=== PATIENT | male | born 1955 | race Caucasian/White ===

== ENCOUNTER 2017-05-26 06:03 | Inpatient (IN) | payer BC ==
[2017-05-25 10:27] LABS: Albumin 3.9 g/dL (3.4-5.0); BUN/Creatinine Ratio 15.7; Calcium 9.3 mg/dL (8.5-10.1); Potassium 3.9 mmol/L (3.5-5.1)
[2017-05-25 10:28] LABS: INR 1.04 (0.9-1.15); Partial Thromboplastin Time 29.2 sec (22.64-33.71); Prothrombin Time 11.3 sec (9.37-12.3)
[2017-05-25 10:30] LABS: Total Protein 7.1 g/dL (6.4-8.2)
[2017-05-25 10:35] LABS: Urine Bilirubin Negative (Negative); Urine Blood Negative /uL (Negative); Urine Color Yellow (Yellow); Urine Glucose Normal (Normal); Urine Ketone Negative (Negative); Urine Nitrite Negative (Negative); Urine RBC <1 /hpf (0 - 3); Urine Urobilinogen Normal (Negative)
[2017-05-25 10:36] LABS: Basophils # (auto) 0 uL; Basophils % (auto) 0.5 % (0.0-2.0); Eosinophils # (auto) 0.5 uL; Eosinophils % (auto) 8.6 % (0.0-7.0); Hematocrit 45.6 % (41.0-53.0); Hemoglobin 15.8 g/dL (13.5-17.5); Lymphocytes # (auto) 1.2 uL; Lymphocytes % (auto) 18.2 % (10.0-50.0); Mean Corpuscular Hemoglobin 29.9 pg (28.0-32.0); Mean Corpuscular Hgb Conc. 34.7 g/dL (32.0-36.0); Mean Corpuscular Volume 86.2 fL (80.0-100.0); Mean Platelet Volume 8.3 fL (6.9-10.8); Monocytes # (auto) 0.4 uL; Monocytes % (auto) 6.8 % (0.0-12.0); Neutrophils # (auto) 4.2 uL; Neutrophils % (auto) 65.9 % (37.0-80.0); Nucleated Red Blood Cells % 0.2 %; Platelet Count (auto) 160 10^3/uL (140-450); Red Cell Distribution Width 14.2 % (11.8-14.3); White Blood Cell 6.4 10^3/uL (4.4-10.8)
[~2017-05-26] VITALS: Ht 188 cm; Wt 93.2 kg
[~2017-05-26 06:03] MED LIST: ALBU1AER4 IN; ALBU2TAB4 IN; ATOR10TA PO; METH750T3 PO; MONT5CHW17 PO; OXYC-629 PO; PRA25T PO; UMEC1INH IN
[2017-05-26] MEDS ORDERED: LIDOCAINE W/ EPINEPHRINE 1 % INJ 30ML ONE (07:21)
[2017-05-26] MEDS ORDERED: METHYLENE BLUE 0.5% 5MG/ML 10ml AMP IV ONE (07:21)
[2017-05-26] MEDS ORDERED: BUPIVACAINE 0.25% INJ 50ML VIAL ONE (07:22)
[2017-05-26] MEDS ORDERED: fentaNYL CITRATE 100 MCG/2 ML VL ONE ×2 (07:36→12:22)
[2017-05-26] MEDS ORDERED: MIDAZOLAM HCL 1MG/1ML-2 ML VIAL ONE (07:36)
[2017-05-26] MEDS ORDERED: ceFOXitin 2GM/100ML D5W 100 ML IV ONE (07:38)
[2017-05-26] MEDS ORDERED: ROCURONIUM 10MG/ML 10ML VIAL IV ONE (07:42)
[2017-05-26] MEDS ORDERED: PROPOFOL 10 MG/ML 20 ML IV ONE (07:42)
[2017-05-26] MEDS ORDERED: MORPHINE SULFATE INJECTION 1 ML ONE (08:31)
[2017-05-26] MEDS ORDERED: CEFOXITIN SODIUM 1 GM in D5W 5% 50 ML IV SCH (09:45)
[2017-05-26] MEDS ORDERED: ALBUTEROL SULFATE 1.25 MG IN PRN (09:45)
[2017-05-26] MEDS ORDERED: PATIENTS OWN MEDICATION (Montelukast Sodium (Singulair) 10 MG) PO SCH ×2 (10:00)
[2017-05-26] MEDS: MONTELUKAST SODIUM 10 MG TAB PO SCH (10:00)
[2017-05-26] MEDS ORDERED: ALBUTEROL SULF 2.5 MG/0.5ML(0.5%) NEB SOLN NEB PRN (11:00)
[2017-05-26] MEDS ORDERED: ONDANSETRON HCL 4 MG/2 ML VIAL IV ONE (11:00)
[2017-05-26] MEDS ORDERED: hydrALAZINE HCL 20 MG/ML VL IV PRN (11:00)
[2017-05-26] MEDS ORDERED: fentaNYL CITRATE 100 MCG/2 ML VL IV PRN (11:00)
[2017-05-26] MEDS: oxyCODONE ER 10 MG TAB PO SCH ×3 (12:00→21:27)
[2017-05-26] MEDS ORDERED: ONDANSETRON HCL 4 MG/2 ML VIAL ONE (12:11)
[2017-05-26] MEDS ORDERED: METOCLOPRAMIDE HCL 5MG/ml INJ 2ml VIAL ONE (12:11)
[2017-05-26] MEDS ORDERED: DEXAMETHASONE SOD PHOS 10MG/1ML VIAL INJ ONE (12:11)
[2017-05-26] MEDS ORDERED: NEOSTIGMINE 1 MG/ML INJ (10mg/10ML VIAL) ONE (12:12)
[2017-05-26] MEDS ORDERED: GLYCOPYRROLATE 0.2 MG/ML 1ML VIAL ONE (12:12)
[2017-05-26] MEDS ORDERED: MEPERIDINE HCL (50 MG/ML) 1 ML VIAL ONE (12:27)
[2017-05-26] MEDS: HYDROmorphone HCL 2 MG/ML VL IV PRN ×6 (12:50→23:07)
[2017-05-26 14:08] VITALS: BP 146/86
[2017-05-26] MEDS: CEFOXITIN SODIUM 1 GM in D5W 5% 50 ML IV SCH ×2 (14:37→21:26)
[2017-05-26 14:38] LABS: BUN/Creatinine Ratio 13.1; Calcium 8.1 mg/dL (8.5-10.1); Potassium 4.2 mmol/L (3.5-5.1)
[2017-05-26 17:00] VITALS: BP 142/80
[2017-05-26] MEDS: D5W/SOD CHL 0.45% 1,000 ML IV SCH ×2 (17:33→18:19)
[2017-05-26] MEDS ORDERED: PRAMIPEXOLE DIHYDROCHLORIDE MO 0.25 MG TAB PO SCH (18:00)
[2017-05-26] MEDS ORDERED: PATIENTS OWN MEDICATION (Atorvastatin Calcium (Lipitor) 1 TAB) PO SCH ×2 (18:00)
[2017-05-26] MEDS: ALBUTEROL SULF 2.5 MG/0.5ML(0.5%) NEB SOLN NEB SCH (19:09)
[2017-05-26 20:00] VITALS: BP 145/75
[2017-05-26] MEDS: ATORVASTATIN 20 MG TAB PO SCH (21:27)
[2017-05-26 21:53] VITALS: BP 145/75
[2017-05-27] MEDS: D5W/SOD CHL 0.45% 1,000 ML IV SCH ×3 (02:30→17:33)
[2017-05-27] MEDS: HYDROmorphone HCL 2 MG/ML VL IV PRN ×4 (02:30→22:11)
[2017-05-27 05:00] VITALS: BP 99/54
[2017-05-27] MEDS: CEFOXITIN SODIUM 1 GM in D5W 5% 50 ML IV SCH (06:16)
[2017-05-27] MEDS: oxyCODONE ER 10 MG TAB PO SCH ×4 (06:16→21:50)
[2017-05-27] MEDS: ALBUTEROL SULF 2.5 MG/0.5ML(0.5%) NEB SOLN NEB SCH ×4 (07:06→18:47)
[2017-05-27 07:40] VITALS: BP 136/65
[2017-05-27] MEDS: ACETAMINOPHEN/CODEINE#3 (300/30mg) TAB PO PRN (09:11)
[2017-05-27] MEDS: MONTELUKAST SODIUM 10 MG TAB PO SCH (10:00)
[2017-05-27] MEDS: PRAMIPEXOLE DIHYDROCHLORIDE MO 0.25 MG TAB PO SCH (10:00)
[2017-05-27] MEDS: DOCUSATE SOD 100 MG CAP PO PRN ×2 (10:15→21:50)
[2017-05-27 10:55] VITALS: BP 132/66
[2017-05-27 16:19] VITALS: BP 114/67
[2017-05-27 20:35] VITALS: BP 120/67
[2017-05-27] MEDS: ATORVASTATIN 20 MG TAB PO SCH (21:49)
[2017-05-28] MEDS: D5W/SOD CHL 0.45% 1,000 ML IV SCH ×3 (04:48→17:50)
[2017-05-28 05:32] VITALS: BP 116/75
[2017-05-28] MEDS: oxyCODONE ER 10 MG TAB PO SCH ×4 (05:39→21:46)
[2017-05-28] MEDS: ALBUTEROL SULF 2.5 MG/0.5ML(0.5%) NEB SOLN NEB SCH ×4 (07:32→18:19)
[2017-05-28] MEDS: MONTELUKAST SODIUM 10 MG TAB PO SCH (08:58)
[2017-05-28] MEDS: PRAMIPEXOLE DIHYDROCHLORIDE MO 0.25 MG TAB PO SCH (08:58)
[2017-05-28] MEDS: HYDROmorphone HCL 2 MG/ML VL IV PRN (08:58)
[2017-05-28 09:54] VITALS: BP 124/72
[2017-05-28] MEDS ORDERED: SODIUM CHLORIDE 0.9 % NEB SOLN 3ML NEB ONE (12:04)
[2017-05-28 12:15] VITALS: BP 126/72
[2017-05-28 16:14] VITALS: BP 118/73
[2017-05-28] MEDS: ATORVASTATIN 20 MG TAB PO SCH (21:45)
[2017-05-28] MEDS: DOCUSATE SOD 100 MG CAP PO PRN (21:47)
[2017-05-29] MEDS: D5W/SOD CHL 0.45% 1,000 ML IV SCH ×3 (01:33→19:00)
[2017-05-29 05:00] VITALS: BP 133/76
[2017-05-29] MEDS: ALBUTEROL SULF 2.5 MG/0.5ML(0.5%) NEB SOLN NEB SCH ×4 (05:57→18:23)
[2017-05-29] MEDS: oxyCODONE ER 10 MG TAB PO SCH ×3 (05:57→17:58)
[2017-05-29] MEDS: HYDROmorphone HCL 2 MG/ML VL IV PRN ×2 (09:42→14:41)
[2017-05-29 10:22] VITALS: BP 123/76
[2017-05-29] MEDS ORDERED: MAGNESIUM CITRATE SOLUTION 300 ML BTL PO ONE (10:30)
[2017-05-29] MEDS ORDERED: MAGNESIUM CITRATE SOLUTION 300 ML BTL PO PRN (10:30)
[2017-05-29] MEDS: MONTELUKAST SODIUM 10 MG TAB PO SCH (10:45)
[2017-05-29] MEDS: PRAMIPEXOLE DIHYDROCHLORIDE MO 0.25 MG TAB PO SCH (10:45)
[2017-05-29] MEDS: ONDANSETRON HCL 4 MG/2 ML VIAL IV PRN (12:12)
[2017-05-29 12:21] VITALS: BP 153/93
[2017-05-29 15:50] VITALS: BP 153/93
[2017-05-29 16:16] VITALS: BP 144/93
[2017-05-29] MEDS ORDERED: BISACODYL 10 MG RECT SUPP PR PRN (18:00)
[2017-05-29] MEDS: ATORVASTATIN 20 MG TAB PO SCH (21:33)
[2017-05-29] MEDS: DOCUSATE SOD 100 MG CAP PO PRN (21:33)
[2017-05-29] MEDS: diphenhdrAMINE HCL 50 MG/1 ML VL IV PRN (21:33)
[2017-05-29] MEDS: OXYCODONE HCL 5MG TAB PO PRN (21:34)
[2017-05-29 22:00] VITALS: BP 157/83
[2017-05-30] MEDS: D5W/SOD CHL 0.45% 1,000 ML IV SCH (02:00)
[2017-05-30 05:00] VITALS: BP 124/75
[2017-05-30] MEDS: ALBUTEROL SULF 2.5 MG/0.5ML(0.5%) NEB SOLN NEB SCH ×3 (06:15→19:40)
[2017-05-30] MEDS: ACETAMINOPHEN/CODEINE#3 (300/30mg) TAB PO PRN (08:20)
[2017-05-30] MEDS: PRAMIPEXOLE DIHYDROCHLORIDE MO 0.25 MG TAB PO SCH (09:22)
[2017-05-30] MEDS: MONTELUKAST SODIUM 10 MG TAB PO SCH (09:22)
[2017-05-30] MEDS: HYDROmorphone HCL 2 MG/ML VL IV PRN ×2 (10:32→16:54)
[2017-05-30 11:37] VITALS: BP 132/85
[2017-05-30] MEDS ORDERED: GOLYTELY 4L KIT PO ONE (13:30)
[2017-05-30] MEDS: OXYCODONE HCL 5MG TAB PO PRN ×2 (13:46→18:36)
[2017-05-30 17:50] VITALS: BP 131/86
[2017-05-30] MEDS: ONDANSETRON HCL 4 MG/2 ML VIAL IV PRN (18:36)
[2017-05-30] MEDS: ATORVASTATIN 20 MG TAB PO SCH (23:09)
[2017-05-30] MEDS: diphenhdrAMINE HCL 50 MG/1 ML VL IV PRN (23:09)
[2017-05-30 23:53] VITALS: BP 137/87
[2017-05-31] MEDS: ALBUTEROL SULF 2.5 MG/0.5ML(0.5%) NEB SOLN NEB SCH ×3 (00:44→11:34)
[2017-05-31 05:09] VITALS: BP 145/92
[2017-05-31] MEDS: OXYCODONE HCL 5MG TAB PO PRN ×3 (06:32→17:34)
[2017-05-31 07:51] VITALS: BP 117/72
[2017-05-31 07:52] VITALS: BP 118/83
[2017-05-31] MEDS: HYDROmorphone HCL 2 MG/ML VL IV PRN (09:22)
[2017-05-31] MEDS: PRAMIPEXOLE DIHYDROCHLORIDE MO 0.25 MG TAB PO SCH (10:05)
[2017-05-31] MEDS: MONTELUKAST SODIUM 10 MG TAB PO SCH (10:05)
[2017-05-31 12:03] VITALS: BP 129/76
[2017-05-31] MEDS: ACETAMINOPHEN/CODEINE#3 (300/30mg) TAB PO PRN ×2 (15:00→17:34)
[2017-05-31 15:59] VITALS: BP 129/77
== END 2017-05-31 17:10 | disposition home or self-care (01) | DRG 708 ==
LOC: SUR 06:03 → EAST 06:04
PROVIDERS: ADMIT Urology; ATTEND Urology
PROC: 07TC4ZZ Resection of Pelvis Lymphatic, Percutaneous Endoscopic Approach (ICD-10-PCS; 2017-05-26)
PROC: 8E0W4CZ Robotic Assisted Procedure of Trunk Region, Percutaneous Endoscopic Approach (ICD-10-PCS; 2017-05-26)
PROC: 0TQC4ZZ Repair Bladder Neck, Percutaneous Endoscopic Approach (ICD-10-PCS; 2017-05-26)
PROC: 0VT04ZZ Resection of Prostate, Percutaneous Endoscopic Approach (ICD-10-PCS; principal; 2017-05-26 07:42)
DX: C61 Malignant neoplasm of prostate (principal); J44.9 Chronic obstructive pulmonary disease, unspecified; G89.4 Chronic pain syndrome; K59.00 Constipation, unspecified; N32.81 Overactive bladder; N40.1 Benign prostatic hyperplasia with lower urinary tract symptoms; E78.5 Hyperlipidemia, unspecified; Z85.89 Personal history of malignant neoplasm of other organs and systems; Z79.899 Other long term (current) drug therapy
CPT/HCPCS: 36415; 80048; 80053; 81001; 85025; 85610; 85730; 86850; 86900; 86901; 87086; 94640; 97116; 97530; J0694; J1100; J2250; J2405; J2704; J3490; J7060

== ENCOUNTER → 2019-01-02 | Day surgery (SDC) | payer BC ==
[2018-12-28 14:18] LABS: Urine WBC None Seen /hpf (0 - 3)
[2018-12-28 14:22] LABS: Basophils # (auto) 0 uL; Basophils % (auto) 0.3 % (0.0-2.0); Eosinophils # (auto) 0.1 uL; Eosinophils % (auto) 1.8 % (0.0-7.0); Hematocrit 47.4 % (41.0-53.0); Hemoglobin 16.1 g/dL (13.5-17.5); Lymphocytes # (auto) 0.9 uL; Lymphocytes % (auto) 13.5 % (10.0-50.0); Mean Corpuscular Hemoglobin 29.3 pg (28.0-32.0); Mean Corpuscular Hgb Conc. 33.9 g/dL (32.0-36.0); Mean Corpuscular Volume 86.6 fL (80.0-100.0); Monocytes # (auto) 0.4 uL; Monocytes % (auto) 6.3 % (0.0-12.0); Neutrophils # (auto) 4.9 uL; Neutrophils % (auto) 78.1 % (37.0-80.0); Platelet Count (auto) 156 10^3/uL (140-450); Red Blood Cells 5.48 10^6/uL (4.5-5.90); Red Cell Distribution Width 13.5 % (11.8-14.3); White Blood Cell 6.3 10^3/uL (4.4-10.8)
[2018-12-28 14:33] LABS: Urine Bacteria NONE SEEN /hpf (None Seen); Urine Blood Negative /uL (Negative); Urine Specific Gravity 1.021 (1.001-1.035)
[2018-12-28 15:01] LABS: Potassium 4.2 mmol/L (3.5-5.1)
[2018-12-28 15:06] LABS: Albumin 3.8 g/dL (3.4-5.0); Calcium 8.6 mg/dL (8.5-10.1)
[2018-12-28 15:07] LABS: INR 1.01 (0.9-1.15); Partial Thromboplastin Time 27.3 sec (23.78-33.04); Prothrombin Time 10.8 sec (9.27-12.13)
[2018-12-28 15:09] LABS: BUN/Creatinine Ratio 19.3
[2018-12-28 15:12] LABS: Total Protein 7.2 g/dL (6.4-8.2)
[~2019-01-02] VITALS: Ht 188 cm; Wt 83.9 kg
[~2019-01-02] MED LIST changes: +CIPROFLOXACIN 400MG/200ML 200 ML IV ONE; +ESLI1TAB3 PO; +LIDOCAINE W/ EPINEPHRINE 1% 20ML VIAL ONE; +MEPERIDINE HCL (50 MG/ML) 1 ML VIAL ONE; +METOCLOPRAMIDE HCL 5MG/ml INJ 2ml VIAL IV ONE; +MIDAZOLAM HCL 1MG/1ML-2 ML VIAL ONE; +MOME200A INH; +MORPHINE SULF INJ 2 MG/ML SYRINGE 1ML IV ONE; +MORPHINE SULF INJ 2 MG/ML SYRINGE 1ML ONE; +ONDANSETRON HCL 4 MG/2 ML VIAL ONE; +PROPOFOL 10 MG/ML 20 ML IV ONE; +ROCURONIUM 10MG/ML 10ML VIAL IV ONE; +SODIUM CHLORIDE LOCK 10 ML ONE; +TURM500C3 OR; +VANCOMYCIN HCL 1000 MG VL ONE; +ceFAZolin 1GM VL ONE; +fentaNYL CITRATE 100 MCG/2 ML VL ONE
[2019-01-02] MEDS: HYDROmorphone HCL 2 MG/ML VL IV PRN ×3 (15:15→15:39)
[2019-01-02 16:22] VITALS: BP 148/89
== END | disposition home or self-care (01) ==
LOC: SUR 09:52
PROVIDERS: ATTEND Urology
DX: N52.9 Male erectile dysfunction, unspecified (principal); D53.8 Other specified nutritional anemias; M79.89 Other specified soft tissue disorders; J44.9 Chronic obstructive pulmonary disease, unspecified; G40.909 Epilepsy, unspecified, not intractable, without status epilepticus; K44.9 Diaphragmatic hernia without obstruction or gangrene; Z79.899 Other long term (current) drug therapy; Z85.46 Personal history of malignant neoplasm of prostate; Z98.890 Other specified postprocedural states
CPT/HCPCS: 36415; 54235; 54401; 80053; 81001; 85025; 85610; 85730; 87086; C1813; J0690; J0744; J1170; J2175; J2250; J2270; J2405; J2704; J3010; J3370; J7050

== ENCOUNTER 2019-01-13 14:43 | Inpatient (IN) | payer BC ==
[~2019-01-13] VITALS: Ht 188 cm; Wt 118.1 kg
[~2019-01-13 14:43] MED LIST changes: -CIPROFLOXACIN 400MG/200ML 200 ML IV ONE; -LIDOCAINE W/ EPINEPHRINE 1% 20ML VIAL ONE; -MEPERIDINE HCL (50 MG/ML) 1 ML VIAL ONE; -METOCLOPRAMIDE HCL 5MG/ml INJ 2ml VIAL IV ONE; -MIDAZOLAM HCL 1MG/1ML-2 ML VIAL ONE; -MORPHINE SULF INJ 2 MG/ML SYRINGE 1ML IV ONE; -MORPHINE SULF INJ 2 MG/ML SYRINGE 1ML ONE; -ONDANSETRON HCL 4 MG/2 ML VIAL ONE; -PROPOFOL 10 MG/ML 20 ML IV ONE; -ROCURONIUM 10MG/ML 10ML VIAL IV ONE; -SODIUM CHLORIDE LOCK 10 ML ONE; -VANCOMYCIN HCL 1000 MG VL ONE; -ceFAZolin 1GM VL ONE; -fentaNYL CITRATE 100 MCG/2 ML VL ONE
[2019-01-13] MEDS ORDERED: SODIUM CHLORIDE 0.9% 1,000 ML IV ONE ×2 (15:53)
[2019-01-13 16:13] LABS: INR 0.99 (0.9-1.15); Partial Thromboplastin Time 29.2 sec (23.78-33.04); Prothrombin Time 10.6 sec (9.27-12.13)
[2019-01-13 16:14] LABS: Albumin 3.8 g/dL (3.4-5.0); Anion Gap 7 (5-15); Blood Urea Nitrogen 16 mg/dL (7-18); Calcium 8.9 mg/dL (8.5-10.1); Carbon Dioxide 26 mmol/L (21-32); Chloride 110 mmol/L (98-107); Glucose 98 mg/dL (74-106); Potassium 3.6 mmol/L (3.5-5.1); Sodium 143 mmol/L (136-145)
[2019-01-13 16:52] LABS: Alanine Aminotransferase 22 U/L (16-61); Alkaline Phosphatase 90 U/L (45-117); Aspartate Aminotransferase 12 U/L (15-37); BUN/Creatinine Ratio 18.8; Bilirubin, Total 0.5 mg/dL (0.2-1.0); GFR African American 117 mL/min; GFR Non-African American 96 mL/min
[2019-01-13] MEDS ORDERED: PIPERACILLIN-TAZOB 3.375GM 100 ML IV ONE (17:00)
[2019-01-13 17:16] LABS: Basophils # (auto) 0 uL; Basophils % (auto) 0.6 % (0.0-2.0); Eosinophils # (auto) 0.5 uL; Eosinophils % (auto) 7.8 % (0.0-7.0); Hematocrit 47.4 % (41.0-53.0); Hemoglobin 16.4 g/dL (13.5-17.5); Mean Corpuscular Hemoglobin 29.6 pg (28.0-32.0); Mean Corpuscular Hgb Conc. 34.3 g/dL (32.0-36.0); Mean Corpuscular Volume 86.4 fL (80.0-100.0); Monocytes # (auto) 0.5 uL; Monocytes % (auto) 7.2 % (0.0-12.0); Neutrophils # (auto) 4.5 uL; Neutrophils % (auto) 69.4 % (37.0-80.0); Nucleated Red Blood Cells % 0.2 %; Red Blood Cells 5.52 10^6/uL (4.5-5.90); White Blood Cell 6.4 10^3/uL (4.4-10.8)
[2019-01-13 17:17] LABS: Platelet Count (auto) 208 10^3/uL (140-450); Red Cell Distribution Width 13.3 % (11.8-14.3)
[2019-01-13 18:20] LABS: Urine Bacteria NONE SEEN /hpf (None Seen); Urine Blood 2+ /uL (Negative); Urine Specific Gravity 1.022 (1.001-1.035); Urine WBC 1 /hpf (0 - 3)
[2019-01-13] MEDS ORDERED: VANCOMYCIN PER PHARMACY 0 MG IV SCH (21:30)
[2019-01-13] MEDS ORDERED: POLYETHYLENE GLYCOL 17 GM PWDR PO PRN (21:45)
[2019-01-13] MEDS ORDERED: MORPHINE SULF INJ 2 MG/ML SYRINGE 1ML IV PRN (21:45)
[2019-01-13] MEDS ORDERED: IPRATROPIUM BROM 0.5 MG/2.5ML INH SOL NEB PRN (21:45)
[2019-01-13] MEDS ORDERED: OXYCODONE W/ ACETAMINOPHEN 5/325MG TABLET PO PRN (21:45)
[2019-01-13] MEDS ORDERED: MORPHINE SULFATE 4 MG/ML SYR/VIAL IV PRN ×2 (21:45→23:30)
[2019-01-13] MEDS ORDERED: NITROGLYCERIN 0.4 MG SL TAB SL PRN (21:45)
[2019-01-13] MEDS ORDERED: ONDANSETRON HCL 4 MG/2 ML VIAL IV PRN (21:45)
[2019-01-13] MEDS ORDERED: ALBUTEROL SULF 2.5 MG/0.5ML(0.5%) NEB SOLN NEB PRN (21:45)
[2019-01-13] MEDS ORDERED: CIPROFLOXACIN 400MG/200ML 200 ML IV ONE (22:00)
[2019-01-13] MEDS: DOCUSATE SOD 100 MG CAP PO SCH (22:13)
[2019-01-13] MEDS: PRAMIPEXOLE DIHYDROCHLORIDE MO 0.25 MG TAB PO SCH (22:13)
[2019-01-13] MEDS: MONTELUKAST SODIUM 10 MG TAB PO SCH (22:13)
[2019-01-13 22:18] VITALS: BP 124/75
--- NOTE | 2019-01-13 22:24 | NUR ---
PATIENT ADMITTED TO UNIT Patient admitted from ED to Tele unit via wheelchair. Patient is A&O X's 4 with no s/s of distress noted. Patient reports pain 7/10 on scrotum area where incision site is. Educated patient on pain management/pain medication/POC and to use call light when in need of assistance. Patient verbalized understanding. Oriented patient to unit/visiting hours/call light/tv remote/bathroom. Bed is in lowest/locked position with side rails up X's 2 and call light is within reach of patient. Patient was provided with a sandwich/water/blanket and hygiene supplies. Will continue to monitor for changes and round hourly/PRN.
[2019-01-13] MEDS ORDERED: VANCOMYCIN 1GM/250ML 250 ML IV ONE ×2 (22:30→23:21)
--- NOTE | 2019-01-13 23:01 | NUR ---
CALLED IT Called pharmacy and then IT regarding medications not showing up in the pyxis. IT gave me a ticket number for this problem to be fixed: [phone] but aviation maintenance technician wont be available until tuesday. Pharmacy said they cannot fix this issue.
[2019-01-14] MEDS ORDERED: PIPERACILLIN-TAZOB 3.375GM 100 ML IV SCH
--- NOTE | 2019-01-14 00:30 | NUR ---
WOUND PHOTOS Wound photos taken at this time. form was filled out.
[2019-01-14] MEDS: OXYCODONE W/ ACETAMINOPHEN 5/325MG TABLET PO PRN ×3 (00:31→22:07)
[2019-01-14] MEDS: PIPERACILLIN-TAZOB 3.375GM 100 ML IV SCH ×4 (00:32→17:09)
[2019-01-14 04:59] VITALS: BP 107/59
[2019-01-14] MEDS: PANTOPRAZOLE 40 MG TAB PO SCH (05:39)
[2019-01-14] MEDS ORDERED: PANTOPRAZOLE 40 MG TAB PO SCH (06:00)
[2019-01-14 07:51] LABS: Basophils # (auto) 0.1 uL; Basophils % (auto) 1.2 % (0.0-2.0); Eosinophils # (auto) 0.4 uL; Eosinophils % (auto) 7.5 % (0.0-7.0); Hematocrit 39.2 % (41.0-53.0); Hemoglobin 13.4 g/dL (13.5-17.5); Lymphocytes % (auto) 18.6 % (10.0-50.0); Mean Corpuscular Hemoglobin 29.5 pg (28.0-32.0); Mean Corpuscular Hgb Conc. 34.1 g/dL (32.0-36.0); Mean Corpuscular Volume 86.6 fL (80.0-100.0); Monocytes # (auto) 0.4 uL; Monocytes % (auto) 8.1 % (0.0-12.0); Neutrophils # (auto) 3.4 uL; Neutrophils % (auto) 64.6 % (37.0-80.0); Nucleated Red Blood Cells % 0.1 %; Platelet Count (auto) 175 10^3/uL (140-450); Red Blood Cells 4.53 10^6/uL (4.5-5.90); Red Cell Distribution Width 13.3 % (11.8-14.3); White Blood Cell 5.3 10^3/uL (4.4-10.8)
--- NOTE | 2019-01-14 07:55 | NUR ---
Opening Shift Note Assumed care of patient, awake, alert, and oriented x4. Patient has 7/10 complaints of pain to scrotal area at this time but does not want pain medication at this time. Patient has IV in left forearm 20g saline locked and flushing well, patient tolerating well. Patient is on room air with no S/S of distress/SOB. Patient has incision with sutures to scrotum, bleeding noted from incision. Instructed on POC and to call for assist PRN, will continue to monitor for changes Q1hr and PRN. Bed in lowest locked position, call light within reach.
[2019-01-14 08:00] VITALS: BP 136/58
[2019-01-14 08:08] LABS: Albumin 2.7 g/dL (3.4-5.0); Calcium 7.9 mg/dL (8.5-10.1); Potassium 3.8 mmol/L (3.5-5.1)
[2019-01-14 08:12] LABS: BUN/Creatinine Ratio 20.3; Bilirubin, Total 0.6 mg/dL (0.2-1.0); Total Protein 5.8 g/dL (6.4-8.2)
[2019-01-14] MEDS: ESLICARBAZEPINE ACETATE 600 MG PO SCH (09:28)
[2019-01-14 09:35] VITALS: BP 98/55
[2019-01-14] MEDS: VANCOMYCIN 1,250 MG in D5W 5% 250 ML IV SCH ×2 (09:50→21:57)
[2019-01-14] MEDS: LACTULOSE 20Gm/30ML SOLN PO PRN ×2 (09:50→22:07)
[2019-01-14] MEDS: DOCUSATE SOD 100 MG CAP PO SCH ×2 (09:50→21:58)
--- NOTE | 2019-01-14 11:00 | NUR ---
WOUND CARE ASSISTANT READING TEACHER MARIAMA, AT BEDSIDE. SCROTUM INCISION CLEANSED WITH NORMAL SALINE FOLLOWED BY H2O2 PER ORDER, PATTED DRY WITH STERILE GAUZE. PATIENT TOLERATED WELL.
--- NOTE | 2019-01-14 11:04 | NUR ---
WOUND CARE NOTE: Wound care in to see patient per wound care request regarding "mild wound dehiscence on scrotum s/p IPP placement" . Bedside nurse took photograph of patient's wound upon admission for reference. Patient is 63 years old male with admitting diagnosis of Post Operative Surgical Bleeding Scrotum. He has history of Prostate Cancer, hernia, Incontinence. Patient is resting in bed in Rm. 286B. He's ambulatory and self turn and reposition. His current Yovani score is 21. Patient is in no stated pain at this time. Skin/wound assessment done with the assistance of patient's nurse, VALERI Lyle and a male clinical nursing professor. Patient has 0.5x5cm surgical incision at anterior scrotum at the base of penile shaft. Wound has about 0.5x0.5cm dehiscence with intact sutures, too wound is dark red with scant sanguinous drainage. Patient had scrotal surgery ED post prostate resection and implant placement by Dr. Saxena. Patient reports of heavy bleeding yesterday but he states that it subsides today. Patient is seen by Dr. Saxena and plan to do revision surgery tomorrow. Dr. Saxena also ordered to cleanse wound with Hydrogen peroxide. Patient tolerated well. No other wound noted. Bed in low position, call lopez within reach with all safety precautions in placed. No further Wound care monitoring needed at this time. RECOMMENDATION: Cleanse scrotal wound with Hydrogen peroxide per Hemanth Weller's order, redistribute pressure points with pillows, new wound consult in case of active wound, pressure injury, Yovani score of 12 and below. Addendum: 01/14/19 at 1534 by Leta Wakefield RN Amended: Links added.
--- NOTE | 2019-01-14 12:30 | NUR ---
WOUND CULTURE WOUND CULTURE SENT TO LAB PER ORDER.
--- NOTE | 2019-01-14 12:36 | NUR ---
AT BEDSIDE DR. RUFFIN AT BEDSIDE DISCUSSING POC WITH PATIENT. PATIENT COMPLAINING OF CONSTANT DIZZINESS. PER MD, PATIENT TO GET MECLIZINE 25MG PO SCHEDULED BEFORE MEALS AND AT BEDTIME. ORDERS READ BACK AND VERIFIED.
[2019-01-14 12:44] VITALS: BP 113/66
[2019-01-14] MEDS ORDERED: LORazepam 2MG/ML-1ML VIAL IV PRN (12:45)
[2019-01-14 16:32] VITALS: BP 116/71
--- NOTE | 2019-01-14 17:00 | NUR ---
WOUND CARE PATIENT COMPLAINING OF INCREASED BLEEDING TO SCROTAL INCISION AFTER AMBULATING. INCISIONAL WOUND TO SCROTUM CLEANSED WITH H2O2 PER ORDER. ABD PAD PLACED AND BRIEF PUT ON TO HOLD ABD PAD INTO PLACE. PATIENT TOLERATED WELL.
[2019-01-14] MEDS: MECLIZINE HCL 25 MG TAB PO SCH ×2 (17:09→21:57)
[2019-01-14] MEDS: Ensure Enlive Strawberry 8oz Bottle PO SCH (17:09)
--- NOTE | 2019-01-14 18:33 | NUR ---
END OF SHIFT PATIENT RESTING IN BED. NO S/S OF DISTRESS. INSTRUCTED PATIENT TO CALL PRN. BED IN LOWEST LOCKED POSITION, CALL LIGHT WITHIN REACH. ENDORSED CARE TO VALERI ANTONY.
--- NOTE | 2019-01-14 18:38 | NUR ---
URINE CULTURE URINE CULTURE SENT TO LAB PER ORDER.
--- NOTE | 2019-01-14 19:10 | NUR ---
Opening Shift Note Assumed care of pt., awake and alert x4, sitting up in bed on his laptop. No S/S of distress or SOB, no pain noted or reported at this time. Respirations are even and unlabored on room air. Updated pt. on POC and instructed to call for assistance as needed, pt. verbalized understanding. Bed locked in lowest position, side rails up x2, call light within reach. Will continue to monitor q1hr and PRN.
[2019-01-14] MEDS: MONTELUKAST SODIUM 10 MG TAB PO SCH (21:57)
[2019-01-14] MEDS: PRAMIPEXOLE DIHYDROCHLORIDE MO 0.25 MG TAB PO SCH (21:58)
[2019-01-14 22:00] VITALS: BP 100/55
[2019-01-15] MEDS: PIPERACILLIN-TAZOB 3.375GM 100 ML IV SCH ×3 (00:52→12:00)
[2019-01-15 05:00] VITALS: BP 91/54
[2019-01-15] MEDS: MECLIZINE HCL 25 MG TAB PO SCH ×4 (06:39→21:30)
[2019-01-15] MEDS: PANTOPRAZOLE 40 MG TAB PO SCH (06:39)
[2019-01-15] MEDS: OXYCODONE W/ ACETAMINOPHEN 5/325MG TABLET PO PRN ×2 (06:40→21:31)
[2019-01-15 06:45] LABS: Albumin 2.9 g/dL (3.4-5.0); Calcium 8.8 mg/dL (8.5-10.1); Potassium 4.2 mmol/L (3.5-5.1)
[2019-01-15 06:47] LABS: Bilirubin, Total 0.6 mg/dL (0.2-1.0); Total Protein 6.2 g/dL (6.4-8.2)
[2019-01-15 07:18] LABS: Basophils # (auto) 0 uL; Basophils % (auto) 0.7 % (0.0-2.0); Eosinophils # (auto) 0.5 uL; Eosinophils % (auto) 10.1 % (0.0-7.0); Hematocrit 40.7 % (41.0-53.0); Hemoglobin 13.9 g/dL (13.5-17.5); Lymphocytes # (auto) 0.9 uL; Lymphocytes % (auto) 17.3 % (10.0-50.0); Mean Corpuscular Hemoglobin 29.7 pg (28.0-32.0); Mean Corpuscular Hgb Conc. 34.2 g/dL (32.0-36.0); Mean Corpuscular Volume 86.7 fL (80.0-100.0); Monocytes # (auto) 0.3 uL; Monocytes % (auto) 5.8 % (0.0-12.0); Neutrophils # (auto) 3.6 uL; Neutrophils % (auto) 66.1 % (37.0-80.0); Platelet Count (auto) 179 10^3/uL (140-450); Red Blood Cells 4.69 10^6/uL (4.5-5.90); Red Cell Distribution Width 13.6 % (11.8-14.3); White Blood Cell 5.4 10^3/uL (4.4-10.8)
--- NOTE | 2019-01-15 07:40 | NUR ---
Opening Shift Note Assumed care of patient, awake, alert, and oriented x4. Patient has IV in left forearm 20g saline locked and flushing well, patient tolerating well. Patient is on room air with no S/S of distress/SOB. Patient has incision with sutures intact to scrotum. Instructed on POC and to call for assist PRN, will continue to monitor for changes Q1hr and PRN. Bed in lowest locked position, call light within reach.
[2019-01-15] MEDS: Ensure Enlive Strawberry 8oz Bottle PO SCH ×3 (08:00→17:17)
[2019-01-15 08:43] VITALS: BP 92/50
[2019-01-15] MEDS: ESLICARBAZEPINE ACETATE 600 MG PO SCH (09:34)
[2019-01-15] MEDS: DOCUSATE SOD 100 MG CAP PO SCH ×2 (09:34→21:30)
[2019-01-15] MEDS: VANCOMYCIN 1,250 MG in D5W 5% 250 ML IV SCH ×2 (10:04→21:30)
--- NOTE | 2019-01-15 10:47 | NUR ---
Respiratory note: ASSESSED PT FOR PRN MEDNEB TX. HR 67, RR 14, POX 98% ON ROOM AIR. BREATH SOUNDS CLEAR THROUGHOUT. NO S/S OF RESPIRATORY DISTRESS. MEDNEB TX NOT INDICATED AT THIS TIME. ADVISED PT TO CALL FOR RT IF FEELING SOB/DISTRESS.
[2019-01-15] MEDS ORDERED: LIDOCAINE W/ EPINEPHRINE 1 % INJ 30ML ONE (11:38)
[2019-01-15 12:30] VITALS: BP 127/81
--- NOTE | 2019-01-15 12:57 | NUR ---
OFF UNIT PATIENT TAKEN TO PRE-OP VIA BED. NO S/S OF DISTRESS NOTED AT TIME OF DEPARTURE.
[2019-01-15] MEDS ORDERED: LIDOCAINE 1% (LOCAL ANESTH.) PF 5ml SDV ONE (13:12)
[2019-01-15] MEDS ORDERED: SUCCINYLCHOLINE CHLORIDE 20 MG/ML 10ML VIAL IV ONE (13:12)
[2019-01-15] MEDS ORDERED: MIDAZOLAM HCL 1MG/1ML-2 ML VIAL ONE (13:15)
[2019-01-15] MEDS ORDERED: ROCURONIUM 10MG/ML 10ML VIAL IV ONE (13:15)
[2019-01-15] MEDS ORDERED: PROPOFOL 10 MG/ML 20 ML IV ONE (13:15)
[2019-01-15] MEDS ORDERED: fentaNYL CITRATE 100 MCG/2 ML VL ONE (13:54)
[2019-01-15] MEDS ORDERED: ONDANSETRON HCL 4 MG/2 ML VIAL IV ONE (14:00)
[2019-01-15] MEDS ORDERED: NALOXONE HCL 0.4 MG/ML VIAL IV PRN (14:00)
[2019-01-15] MEDS ORDERED: HYDROmorphone HCL 2 MG/ML VL IV PRN (14:00)
[2019-01-15] MEDS ORDERED: STERILE WATER 10 ML ONE (14:05)
[2019-01-15] MEDS ORDERED: ePHEDrine SULFATE 50 MG/ML AMP ONE (14:05)
[2019-01-15] MEDS ORDERED: NEOSTIGMINE 1 MG/ML INJ (10mg/10ML VIAL) ONE (14:14)
[2019-01-15] MEDS ORDERED: GLYCOPYRROLATE 0.2 MG/ML 1ML VIAL ONE (14:14)
[2019-01-15] MEDS: HYDROmorphone HCL 2 MG/ML VL IV PRN ×4 (15:00→15:44)
--- NOTE | 2019-01-15 15:58 | NUR ---
ON UNIT PATIENT TRANSFERRED BACK TO UNIT VIA BED. NO S/S OF DISTRESS NOTED AT TIME OF ARRIVAL. WILL CONTINUE TO MONITOR.
[2019-01-15 16:49] VITALS: BP 128/76
--- NOTE | 2019-01-15 18:28 | NUR ---
AT BEDSIDE DR. LAURENT (UROLOGY) AT BEDSIDE. PER MD, PATIENT TO GET NORMAL SALINE AT 100ML/HR. ORDERS READ BACK AND VERIFIED.
[2019-01-15] MEDS: SODIUM CHLORIDE 0.9% 1,000 ML IV SCH (19:05)
[2019-01-15] MEDS: PRAMIPEXOLE DIHYDROCHLORIDE MO 0.25 MG TAB PO SCH (21:31)
[2019-01-15] MEDS: MONTELUKAST SODIUM 10 MG TAB PO SCH (21:31)
[2019-01-15 22:18] VITALS: BP 121/70
--- NOTE | 2019-01-16 00:10 | NUR ---
Hospitalist paged Patient states that Morphine does not help him at all and states that Dilaudid works much better. His current order is for 1mg Morphine q4hr.
[2019-01-16] MEDS ORDERED: HYDROmorphone HCL 2 MG/ML VL IV ONE (02:15)
[2019-01-16] MEDS: SODIUM CHLORIDE 0.9% 1,000 ML IV SCH ×2 (03:57→17:13)
[2019-01-16 04:40] VITALS: BP 132/77
[2019-01-16 04:42] VITALS: BP 102/55
[2019-01-16] MEDS: PANTOPRAZOLE 40 MG TAB PO SCH (06:28)
[2019-01-16] MEDS: MECLIZINE HCL 25 MG TAB PO SCH ×3 (06:29→17:00)
[2019-01-16] MEDS: OXYCODONE W/ ACETAMINOPHEN 5/325MG TABLET PO PRN (06:29)
[2019-01-16 07:29] LABS: Potassium 3.8 mmol/L (3.5-5.1)
[2019-01-16 07:37] LABS: Albumin 2.6 g/dL (3.4-5.0); BUN/Creatinine Ratio 17.6; Bilirubin, Total 0.4 mg/dL (0.2-1.0); Total Protein 5.7 g/dL (6.4-8.2)
--- NOTE | 2019-01-16 07:40 | NUR ---
Opening Shift Note Assumed care of patient, awake, alert, and oriented x4. Patient has IV in left forearm 20g saline locked and flushing well, patient tolerating well. Patient is on room air with no S/S of distress/SOB. Patient has incision to scrotum covered with gauze and jock strap. Instructed on POC and to call for assist PRN, will continue to monitor for changes Q1hr and PRN. Bed in lowest locked position, call light within reach.
[2019-01-16 08:09] LABS: Basophils # (auto) 0 uL; Basophils % (auto) 0.7 % (0.0-2.0); Eosinophils # (auto) 0.5 uL; Eosinophils % (auto) 7.8 % (0.0-7.0); Hematocrit 39.4 % (41.0-53.0); Hemoglobin 13.5 g/dL (13.5-17.5); Lymphocytes # (auto) 0.8 uL; Lymphocytes % (auto) 14.6 % (10.0-50.0); Mean Corpuscular Hemoglobin 29.6 pg (28.0-32.0); Mean Corpuscular Hgb Conc. 34.2 g/dL (32.0-36.0); Mean Corpuscular Volume 86.7 fL (80.0-100.0); Monocytes # (auto) 0.3 uL; Monocytes % (auto) 5.1 % (0.0-12.0); Neutrophils # (auto) 4.2 uL; Neutrophils % (auto) 71.8 % (37.0-80.0); Platelet Count (auto) 175 10^3/uL (140-450); Red Blood Cells 4.55 10^6/uL (4.5-5.90); Red Cell Distribution Width 13.6 % (11.8-14.3); White Blood Cell 5.8 10^3/uL (4.4-10.8)
[2019-01-16 08:44] VITALS: BP 117/71
[2019-01-16] MEDS: DOCUSATE SOD 100 MG CAP PO SCH (09:17)
[2019-01-16] MEDS: VANCOMYCIN 1,250 MG in D5W 5% 250 ML IV SCH (09:18)
[2019-01-16] MEDS: Ensure Enlive Strawberry 8oz Bottle PO SCH ×2 (09:18→11:18)
[2019-01-16] MEDS: ESLICARBAZEPINE ACETATE 600 MG PO SCH (09:19)
[2019-01-16] MEDS ORDERED: LEVOFLOXACIN 500MG 100 ML IV SCH (10:00)
--- NOTE | 2019-01-16 10:23 | NUR ---
RT NOTE: NO TX INDICATED AT THIS TIME. NO SIGNS OF RESPIRATORY DISTRESS. LUNG SOUNDS CLEAR DIMINISHED T/O. ON RA SPO2 95 HR 81 RR 14. PT AWARE TO HAVE RT PAGED IF NEED FOR TX ARISES. WILL CONTINUE TO MONITOR.
[2019-01-16 12:44] VITALS: BP 115/54
--- NOTE | 2019-01-16 13:32 | NUR ---
UROLOGY DAFNE ALEXANDRE AT BEDSIDE DISCUSSING POC WITH PATIENT.
[2019-01-16 15:49] VITALS: BP 115/54
[2019-01-16 16:35] VITALS: BP 145/70
--- NOTE | 2019-01-16 17:15 | NUR ---
DISCHARGE Discharge instructions given as ordered. Encourage to follow up with PMD as instructed. All questions and concerns addressed. Patient verbalized understanding. Medication reconciliation form completed and copy given to patient. IV removed with catheter intact, pressure dressing applied. Patient taken to vehicle via wheelchair with all personal belongings, accompanied by staff and family member. No distress noted at time of departure.
== END 2019-01-16 17:15 | disposition home or self-care (01) | DRG 920 ==
LOC: ER 15:06 → WEST WING 16:56 → OVERFLOW 21:20 → WEST WING 22:20
PROVIDERS: ADMIT Nurse Practitioner Acute Care; ATTEND Internal Medicine
PROC: 0VJ80ZZ Inspection of Scrotum and Tunica Vaginalis, Open Approach (ICD-10-PCS; principal; 2019-01-15 13:35)
DX: T81.30XA Disruption of wound, unspecified, initial encounter (principal); T81.41XA Infection following a procedure, superficial incisional surgical site, initial encounter; E44.0 Moderate protein-calorie malnutrition; G40.909 Epilepsy, unspecified, not intractable, without status epilepticus; J44.9 Chronic obstructive pulmonary disease, unspecified; N52.9 Male erectile dysfunction, unspecified; E78.5 Hyperlipidemia, unspecified; S30.22XA Contusion of scrotum and testes, initial encounter; Y83.8 Other surgical procedures as the cause of abnormal reaction of the patient, or of later complication, without mention of misadventure at the time of the procedure; X58.XXXA Exposure to other specified factors, initial encounter; Y93.89 Activity, other specified; Y92.89 Other specified places as the place of occurrence of the external cause; Z85.46 Personal history of malignant neoplasm of prostate; Z79.51 Long term (current) use of inhaled steroids; Y99.8 Other external cause status; Z68.33 Body mass index [BMI] 33.0-33.9, adult
CPT/HCPCS: 36415; 71045; 80053; 80202; 81001; 83605; 84484; 85025; 85610; 85730; 87040; 87070; 87075; 87077; 87086; 87186; 87205; G0378; J0330; J1956; J2250; J2543; J2704; J7060

== ENCOUNTER 2019-01-30 11:06 | Day surgery (SDC) | payer BC ==
[~2019-01-30] VITALS: Ht 188 cm; Wt 83.9 kg
[2019-01-30 13:29] LABS: Basophils # (auto) 0 uL; Basophils % (auto) 0.6 % (0.0-2.0); Eosinophils # (auto) 0.4 uL; Eosinophils % (auto) 7.5 % (0.0-7.0); Hematocrit 43.4 % (41.0-53.0); Hemoglobin 14.5 g/dL (13.5-17.5); Lymphocytes # (auto) 0.8 uL; Lymphocytes % (auto) 15.3 % (10.0-50.0); Mean Corpuscular Hemoglobin 29.1 pg (28.0-32.0); Mean Corpuscular Hgb Conc. 33.5 g/dL (32.0-36.0); Monocytes # (auto) 0.5 uL; Neutrophils # (auto) 3.7 uL; Neutrophils % (auto) 67.6 % (37.0-80.0); Nucleated Red Blood Cells % 0.2 %; Platelet Count (auto) 144 10^3/uL (140-450); Red Blood Cells 4.99 10^6/uL (4.5-5.90); Red Cell Distribution Width 13.7 % (11.8-14.3); White Blood Cell 5.4 10^3/uL (4.4-10.8)
[2019-01-30 13:42] LABS: Albumin 3.5 g/dL (3.4-5.0); Calcium 8.4 mg/dL (8.5-10.1); Potassium 3.5 mmol/L (3.5-5.1)
[2019-01-30 13:45] LABS: BUN/Creatinine Ratio 15.8; Bilirubin, Total 0.7 mg/dL (0.2-1.0); Total Protein 6.6 g/dL (6.4-8.2)
[2019-01-30 14:43] LABS: INR 1.02 (0.9-1.15); Partial Thromboplastin Time 26.7 sec (23.64-32.05)
[2019-01-30] MEDS ORDERED: IPRATROPIUM BROM 0.5 MG/2.5ML INH SOL NEB PRN (15:15)
[2019-01-30] MEDS ORDERED: MORPHINE SULF INJ 2 MG/ML SYRINGE 1ML IV PRN (15:15)
[2019-01-30] MEDS ORDERED: HYDROmorphone HCL 2 MG/ML VL IV PRN (15:15)
[2019-01-30] MEDS ORDERED: NITROGLYCERIN 0.4 MG SL TAB SL PRN (15:15)
[2019-01-30] MEDS ORDERED: ONDANSETRON HCL 4 MG/2 ML VIAL IV PRN (15:15)
[2019-01-30] MEDS ORDERED: ALBUTEROL SULF 2.5 MG/0.5ML(0.5%) NEB SOLN NEB PRN (15:15)
[2019-01-30] MEDS ORDERED: VANCOMYCIN HCL 1000 MG VL ONE (15:41)
[2019-01-30] MEDS ORDERED: ceFAZolin 1GM VL ONE (15:42)
[2019-01-30] MEDS ORDERED: LIDOCAINE 1% (LOCAL ANESTH.) PF 5ml SDV ONE (15:43)
[2019-01-30] MEDS ORDERED: BUPIVACAINE 0.75% INJ 10ML MPV SDV IJ ONE (15:56)
[2019-01-30] MEDS ORDERED: hydrALAZINE HCL 20 MG/ML VL IV PRN (16:30)
[2019-01-30] MEDS ORDERED: ePHEDrine SULFATE 50 MG/ML AMP IV PRN (16:30)
[2019-01-30] MEDS ORDERED: ONDANSETRON HCL 4 MG/2 ML VIAL IV ONE (16:30)
[2019-01-30 17:00] VITALS: BP 143/91
[2019-01-30] MEDS ORDERED: PRAMIPEXOLE DIHYDROCHLORIDE MO 0.25 MG TAB PO SCH (18:00)
[2019-01-30] MEDS ORDERED: ATORVASTATIN 20 MG TAB PO SCH (22:00)
[2019-01-31] MEDS ORDERED: PANTOPRAZOLE 40 MG TAB PO SCH (10:00)
[2019-01-31] MEDS ORDERED: UMECLIDINIUM BROMIDE 62.5 MCG IN SCH (10:00)
[2019-01-31] MEDS ORDERED: MONTELUKAST SODIUM 10 MG TAB PO SCH (10:00)
== END 2019-01-30 17:15 | disposition home or self-care (01) ==
LOC: ER 11:15 → SUR 15:23 → ER 15:24 → SUR 16:45
PROVIDERS: ATTEND Urology
DX: T81.31XD Disruption of external operation (surgical) wound, not elsewhere classified, subsequent encounter (principal); J44.9 Chronic obstructive pulmonary disease, unspecified; G40.909 Epilepsy, unspecified, not intractable, without status epilepticus; Z90.79 Acquired absence of other genital organ(s); Z96.0 Presence of urogenital implants; Z85.46 Personal history of malignant neoplasm of prostate; Y65.8 Other specified misadventures during surgical and medical care; Y92.89 Other specified places as the place of occurrence of the external cause
CPT/HCPCS: 12020; 36415; 71045; 80053; 85025; 85610; 85730; 93005; J0690; J3370; J3490; J7050